=== PATIENT | male | born 1985 | race Caucasian/White ===

== ENCOUNTER 2020-11-21 07:25 | Emergency (ER) | payer SELFPAY ==
[2020-11-21 07:35] VITALS: BP 173/113; PULSE 86; RESP 16; TEMP 36.4; O2SAT 96; BMI 32.5
--- NOTE | 2020-11-21 07:40 | W.ED.EAR ---
HPI - Ear Problem General: Chief complaint: Ear Stated complaint: Foreign Object Lt ear Time Seen by Provider: 11/21/20 07:26 Source: patient Mode of arrival: ambulatory Limitations: no limitations History of Present Illness: HPI Narrative: Patient is a very nice 35-year-old male who presents to ED today with a complaint of a possible foreign body to his left ear. Patient tells me on his way to work he began feeling a foreign body sensation to his ear. He thinks maybe he also felt something moving around in it. He states he and his irrigated the ear canal with water and thinks maybe she used some type of oil as well. He denies tinnitus or change in hearing. He has not had any discharge or blood from the canal. MD Complaint: foreign body Location: left ear Severity: mild Discharge from ear: no Associated symptoms: Reports no associated symptoms; Denies headache(s) or tinnitus Treatment prior to arrival: other (water/oil irrigation ) Review of Systems ENMT: Reports: other (fb sensation to L ear); Denies: ear discharge, change in hearing, tinnitus or disequilibrium GI: Denies: nausea or vomiting Neuro: Denies: headache(s), dizziness or vertigo Physical Exam Const: COMMON NORMALS: no acute distress, average body habitus, patient oriented x3, no limitations, healthy appearing, alert and well nourished HENMT: COMMON NORMALS: external ears normal, EAC's normal and TM's normal bilaterally EXTERNAL EAR: Yes external ears normal EXTERNAL AUDITORY CANAL: EAC's normal TYMPANIC MEMBRANE: TM's normal bilaterally Neuro: COMMON NORMALS: patient oriented x3 SENSORIUM/ORIENTATION: Yes alert Course Vital Signs: Vital signs: Vital Signs Temperature 97.6 F 11/21/20 07:35 Pulse Rate 86 11/21/20 07:35 Respiratory Rate 16 11/21/20 07:35 Blood Pressure 173/113 11/21/20 07:35 Pulse Oximetry 96 11/21/20 07:35 MDM - Ear MDM Narrative: Medical decision making narrative: No fb noted in EAC. TM intact. 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
== END 2020-11-21 07:45 | disposition home or self-care (01) ==
PROVIDERS: Emergency Provider Physician Assistant
DX: Z03.89 Encounter for observation for other suspected diseases and conditions ruled out (principal)
CPT/HCPCS: 12345; 99281